=== PATIENT | female | born 1950 | race Two or more races ===

== ENCOUNTER → 2022-08-16 | Day surgery (SDC) | payer OTHER ==
[2022-08-10 12:27] LABS: Eosinophils # (auto) 0.1 10 ^3/uL (0-0.8); Hematocrit 36.8 % (36.0-46.0); Hemoglobin 11.7 g/dL (12.2-16.2); Neutrophils # (auto) 6.2 10 ^3/uL (1.6-8.6)
[2022-08-10 12:29] LABS: Basophils # (auto) 0 10 ^3/uL (0-0.2); Basophils % (auto) 0.6 % (0.0-2.0); Eosinophils % (auto) 1.4 % (0.0-7.0); Lymphocytes # (auto) 1.4 10 ^3/uL (0.4-5.4); Lymphocytes % (auto) 16.8 % (10.0-50.0); Mean Corpuscular Hemoglobin 26.7 pg (28.0-32.0); Mean Corpuscular Hgb Conc. 31.7 g/dL (32.0-36.0); Mean Corpuscular Volume 84.1 fL (80.0-100.0); Monocytes # (auto) 0.5 10 ^3/uL (0-1.3); Monocytes % (auto) 5.7 % (0.0-12.0); Neutrophils % (auto) 75.5 % (37.0-80.0); Red Blood Cells 4.37 10^6/uL (4.0-5.20); Red Cell Distribution Width 17.2 % (11.8-14.3); White Blood Cell 8.3 10^3/uL (4.4-10.8)
[2022-08-10 12:52] LABS: Potassium 3.3 mmol/L (3.5-5.1)
[2022-08-10 12:58] LABS: Albumin 3.9 g/dL (3.4-5.0); BUN/Creatinine Ratio 23.2 (10.0-20.0); Bilirubin, Total 0.5 mg/dL (0.2-1.0); Total Protein 7.6 g/dL (6.4-8.2)
[2022-08-10 13:14] LABS: INR 1.01 (0.9-1.15); Partial Thromboplastin Time 28.8 sec (24.6-33.4)
[~2022-08-16] VITALS: Ht 157.5 cm; Wt 93.0 kg
[~2022-08-16] MED LIST: ALL300T PO; AMLO-496 PO; ASPI1TAB20 PO; LISI-285 PO; PRAV20TA3 PO; diphenhdrAMINE HCL 50 MG/1 ML VL ONE
[2022-08-16] MEDS: MIDAZOLAM HCL 2MG/2ML 2ml VIAL (1mg/ml) ONE ×2 (10:09→10:12)
[2022-08-16] MEDS: fentaNYL CITRATE 100 MCG/2 ML VL ONE ×2 (10:09→10:12)
[2022-08-16 11:15] VITALS: BP 150/71
== END | disposition home or self-care (01) ==
LOC: GI 09:02
PROVIDERS: ATTEND Internal Medicine Gastroenterology
DX: Z12.11 Encounter for screening for malignant neoplasm of colon (principal); K57.30 Diverticulosis of large intestine without perforation or abscess without bleeding; Z86.010 Personal history of colon polyps; I10 Essential (primary) hypertension; E78.5 Hyperlipidemia, unspecified; M10.9 Gout, unspecified; Z79.899 Other long term (current) drug therapy
CPT/HCPCS: 36415; 45378; 80053; 85025; 85610; 85730; J1200; J2250; J3010; 99152